=== PATIENT | female | born 1965 | race Caucasian/White ===

== ENCOUNTER 2022-12-15 12:06 | Emergency (ER) | payer OTHER ==
[2022-12-15] MEDS ORDERED: SODIUM CHLORIDE 0.9% 500 ML 500 ML IV STA (12:52)
[2022-12-15] MEDS ORDERED: SODIUM CHLORIDE 0.9% 1,000 ML IV STA (12:52)
--- NOTE | 2022-12-15 13:13 | ED ---
General Adult HPI - General Chief complaint: Anxiety Stated complaint: Dizziness Time Seen by Provider: 12/15/22 12:34 Source: patient, RN notes reviewed Mode of arrival: ambulatory Limitations: no limitations - History of Present Illness Initial comments: 48-year-old female presents emergency Department chief complaint of headache, panic attack. Patient states she woke up this morning. Very anxious. She states she's. Dizzy, lightheaded heart is racing. Patient denies any chest pain. Patient states that she went for some testing 100 forward over the [facility] because she was extremely anxious. Patient states that provider at [facility] called her PCP who then contacted the patient recommend unresponsive for evaluation. Patient states she does feel better at this time but still shaky, very anxious she states been ongoing after she states she was treated for parasites. Patient states she was started on Zoloft one week ago for her anxiety but is not helping she states makes her feel worse. - Related Data Home Medications Medication Instructions Recorded Confirmed Dicyclomine [Bentyl] 20 mg PO TID PRN 12/15/22 12/15/22 Sertraline [Zoloft] 50 mg PO DAILY 12/15/22 12/15/22 Allergies Allergy/AdvReac Type Severity Reaction Status Date / Time corn Allergy Nausea & Verified 12/15/22 22:04 Vomiting & Diarrhea Review of Systems ROS Statement: Those systems with pertinent positive or pertinent negative responses have been documented in the HPI. ROS Other: All systems not noted in ROS Statement are negative. Past Medical History Past Medical History: No Reported History History of Any Multi-Drug Resistant Organisms: None Reported Past Surgical History: No Surgical Hx Reported Past Psychological History: Anxiety, Panic Disorder Smoking Status: Never smoker Past Alcohol Use History: None Reported Past Drug Use History: None Reported General Exam Limitations: no limitations General appearance: alert, in no apparent distress, anxious Head exam: Present: atraumatic, normocephalic, normal inspection Eye exam: Present: normal appearance, PERRL, EOMI. Absent: scleral icterus, conjunctival injection, periorbital swelling ENT exam: Present: normal exam, mucous membranes moist Neck exam: Present: normal inspection, full ROM. Absent: tenderness, meningismus, lymphadenopathy Respiratory exam: Present: normal lung sounds bilaterally. Absent: respiratory distress, wheezes, rales, rhonchi, stridor Cardiovascular Exam: Present: normal rhythm, tachycardia, normal heart sounds. Absent: systolic murmur, diastolic murmur, rubs, gallop, clicks Neurological exam: Present: alert, oriented X3, reflexes normal. Absent: motor sensory deficit Course Vital Signs 12/15/22 12/15/22 12/15/22 12:16 14:57 16:00 Temperature 98 F Pulse Rate 133 H 107 H 106 H Respiratory 24 18 18 Rate Blood Pressure 111/73 141/92 135/82 O2 Sat by Pulse 100 100 100 Oximetry 12/15/22 12/15/22 12/15/22 17:28 17:38 17:58 Temperature 98.3 F 98.6 F 98.3 F Pulse Rate 109 H 112 H 111 H Respiratory 18 18 18 Rate Blood Pressure 142/90 154/90 144/81 O2 Sat by Pulse 99 99 100 Oximetry 12/15/22 12/15/22 12/15/22 18:51 20:50 21:00 Temperature 99.1 F 98.6 F Pulse Rate 101 H 95 95 Respiratory 18 16 16 Rate Blood Pressure 147/85 142/86 121/80 O2 Sat by Pulse 99 99 99 Oximetry 12/15/22 12/15/22 12/15/22 21:20 22:54 23:13 Temperature 98.5 F 98.8 F Pulse Rate 97 84 102 H Respiratory 16 16 16 Rate Blood Pressure 121/80 147/76 150/84 O2 Sat by Pulse 99 98 98 Oximetry 12/16/22 12/16/22 03:05 06:42 Temperature Pulse Rate 88 103 H Respiratory 16 Rate Blood Pressure 141/63 142/90 O2 Sat by Pulse 98 Oximetry EKG Findings - EKG Comments: EKG Findings:: EK:14 sinus tachycardia with a rate of 120, CO 119 QRS 85 QT/QTC 425/496 - EKG Results: EKG: interpreted by ERMD Medical Decision Making - Medical Decision Making Was pt. sent in by a medical professional or institution (, PA, QUAL[employer] ASSURANCE SUPERVISOR CHASSIS, urgent care, hospital, or alf...) When possible be specific @ -PCP Did you speak to anyone other than the patient for history (EMS, parent, family, police, friend...)? What history was obtained from this source @ -No Did you review nursing and triage notes (agree or disagree)? Why? @ -I reviewed and agree with nursing and triage notes Were old charts reviewed (outside hosp., previous admission, EMS record, old EKG, old radiological studies, urgent care reports/EKG's, alf records)? Report findings @ -No old charts were reviewed Differential Diagnosis (chest pain, altered mental status, abdominal pain women, abdominal pain men, vaginal bleeding, weakness, fever, dyspnea, syncope, headache, dizziness, GI bleed, back pain, seizure, CVA, palpatations, mental health, musculoskeletal)? @ -Differential Syncope: Valvular disease, hypertrophic cardiomyopathy, pulmonary embolism, tamponade, tachycardia, bradycardia, NE, hypovolemia, hemorrhage, dissection, anemia, intracranial hemorrhage, seizure, hypoglycemia, carbon monoxide poisoning, this is not meant to be an all-inclusive list. EKG interpreted by me (3pts min.). @ -As above X-rays interpreted by me (1pt min.). @ -None done CT interpreted by me (1pt min.). @ -CT abdomen shows 20.1 cm mass most likely arising from the right ovary with 2 masses of liver monitors 8.6 cm that her pulmonary nodules and mild inflammatory change of the colon U/S interpreted by me (1pt. min.). @ -None done What testing was considered but not performed or refused? (CT, X-rays, U/S, labs)? Why? @ -None What meds were considered but not given or refused? Why? @ -None Did you discuss the management of the patient with other professionals (professionals i.e. , PA, QUAL[employer] ASSURANCE SUPERVISOR CHASSIS, lab, RT, psych nurse, social science analyst, entry level software engineer, teacher, community cultural development officer, patient case coordinator)? Give summary @ -No Was smoking cessation discussed for >3mins.? @ -No Was critical care preformed (if so, how long)? @ -No Were there social determinants of health that impacted care today? How? (Homelessness, low income, unemployed, alcoholism, drug addiction, transportation, low edu. Level, literacy, decrease access to med. care, [facility], rehab)? @ -No Was there de-escalation of care discussed even if they declined (Discuss DNR or withdrawal of care, Hospice)? DNR status @ -No What co-morbidities impacted this encounter? (DM, HTN, Smoking, COPD, CAD, Cancer, CVA, ARF, Chemo, Hep., AIDS, mental health diagnosis, sleep apnea, morbid obesity)? @ -None Was patient admitted / discharged? Hospital course, mention meds given and route, prescriptions, significant lab abnormalities, going to OR and other pertinent info. @ -Patient's found to have significant anemia at 5.3 with leukocytosis at 26. Patient was ordered transfusion given symptomatic anemia. 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 Patient will be transferred to tertiary facility with [facility] oncology. Undiagnosed new problem with uncertain prognosis? @ -Yes Drug Therapy requiring intensive monitoring for toxicity (Heparin, Nitro, Insulin, Cardizem)? @ -No Were any procedures done? @ -No Diagnosis/symptom? @ -Ovarian mass, liver mass, anemia Acute, or Chronic, or Acute on Chronic? @ -Acute Uncomplicated (without systemic symptoms) or Complicated (systemic symptoms)? @ -Complicated Side effects of treatment? @ -No Exacerbation, Progression, or Severe Exacerbation? @ -No Poses a threat to life or bodily function? How? (Chest pain, USA, NE, pneumonia, PE, COPD, DKA, ARF, appy, cholecystitis, CVA, Diverticulitis, Homicidal, Suicidal, threat to staff... and all critical care pts) @ -Yes - Lab Data Result diagrams: 12/15/22 22:55 12/15/22 13:26 Lab Results 12/15/22 12/15/22 12/15/22 Range/Units 13:26 13:26 13:26 WBC 24.2 H (3.8-10.6) k/uL RBC 3.50 L (3.80-5.40) m/uL Hgb 5.9 L* (11.4-16.0) gm/dL Hct 21.3 L (34.0-46.0) % MCV 61.0 L (80.0-100.0) fL MCH 16.8 L (25.0-35.0) pg MCHC 27.5 L (31.0-37.0) g/dL RDW 19.9 H (11.5-15.5) % Plt Count 711 H (150-450) k/uL MPV 8.7 Neutrophils % 93 % Lymphocytes % 3 % Monocytes % 4 % Eosinophils % 0 % Basophils % 0 % Neutrophils # 22.4 H (1.3-7.7) k/uL Lymphocytes # 0.8 L (1.0-4.8) k/uL Monocytes # 0.9 (0-1.0) k/uL Eosinophils # 0.0 (0-0.7) k/uL Basophils # 0.0 (0-0.2) k/uL Polychromasia Present Hypochromasia Marked Poikilocytosis Slight Anisocytosis Slight Microcytosis Marked Target Cells Present Fragmented RBCs Present Sodium 139 (137-145) mmol/L Potassium 3.5 (3.5-5.1) mmol/L Chloride 100 (98-107) mmol/L Carbon Dioxide 22 (22-30) mmol/L Anion Gap 17 mmol/L BUN 14 (7-17) mg/dL Creatinine 0.74 (0.52-1.04) mg/dL Est GFR (CKD-EPI)AfAm >90 (>60 ml/min/1.73 sqM) Est GFR (CKD-EPI)NonAf >90 (>60 ml/min/1.73 sqM) Glucose 179 H (74-99) mg/dL Calcium 7.5 L (8.4-10.2) mg/dL Magnesium 1.9 (1.6-2.3) mg/dL Total Bilirubin 0.5 (0.2-1.3) mg/dL AST 54 H (14-36) U/L ALT 37 H (4-34) U/L Alkaline Phosphatase 167 H (38-126) U/L Troponin I <0.012 (0.000-0.034) ng/mL Total Protein 7.5 (6.3-8.2) g/dL Albumin 3.7 (3.5-5.0) g/dL TSH 1.170 (0.465-4.680) mIU/L Stool Occult Blood (Negative) Coronavirus (PCR) (Not Detectd) Blood Type Blood Type Confirm Blood Type Recheck Bld Type Recheck Status Antibody Screen Crossmatch Spec Expiration Date 12/15/22 12/15/22 12/15/22 Range/Units 14:05 14:20 14:20 WBC 26.3 H (3.8-10.6) k/uL RBC 3.12 L (3.80-5.40) m/uL Hgb 5.3 L* (11.4-16.0) gm/dL Hct 18.8 L* (34.0-46.0) % MCV 60.3 L (80.0-100.0) fL MCH 17.0 L (25.0-35.0) pg MCHC 28.1 L (31.0-37.0) g/dL RDW 19.6 H (11.5-15.5) % Plt Count 656 H (150-450) k/uL MPV 7.6 Neutrophils % 93 % Lymphocytes % 3 % Monocytes % 3 % Eosinophils % 0 % Basophils % 0 % Neutrophils # 24.4 H (1.3-7.7) k/uL Lymphocytes # 0.8 L (1.0-4.8) k/uL Monocytes # 0.9 (0-1.0) k/uL Eosinophils # 0.0 (0-0.7) k/uL Basophils # 0.0 (0-0.2) k/uL Polychromasia Hypochromasia Marked Poikilocytosis Slight Anisocytosis Slight Microcytosis Marked Target Cells Fragmented RBCs Sodium (137-145) mmol/L Potassium (3.5-5.1) mmol/L Chloride (98-107) mmol/L Carbon Dioxide (22-30) mmol/L Anion Gap mmol/L BUN (7-17) mg/dL Creatinine (0.52-1.04) mg/dL Est GFR (CKD-EPI)AfAm (>60 ml/min/1.73 sqM) Est GFR (CKD-EPI)NonAf (>60 ml/min/1.73 sqM) Glucose (74-99) mg/dL Calcium (8.4-10.2) mg/dL Magnesium (1.6-2.3) mg/dL Total Bilirubin (0.2-1.3) mg/dL AST (14-36) U/L ALT (4-34) U/L Alkaline Phosphatase (38-126) U/L Troponin I (0.000-0.034) ng/mL Total Protein (6.3-8.2) g/dL Albumin (3.5-5.0) g/dL TSH (0.465-4.680) mIU/L Stool Occult Blood (Negative) Coronavirus (PCR) (Not Detectd) Blood Type AB Negative Blood Type Confirm AB Negative Blood Type Recheck No Previous Record Bld Type Recheck Status CABO Indicated Antibody Screen NEGATIVE Crossmatch See Detail Spec Expiration Date 12/18/2022230412/15/22 12/15/22 12/16/22 Range/Units 16:27 22:55 03:05 WBC 26.0 H (3.8-10.6) k/uL RBC 3.47 L (3.80-5.40) m/uL Hgb 7.7 L D (11.4-16.0) gm/dL Hct 24.3 L (34.0-46.0) % MCV 70.2 L D (80.0-100.0) fL MCH 22.3 L (25.0-35.0) pg MCHC 31.7 (31.0-37.0) g/dL RDW 26.3 H (11.5-15.5) % Plt Count 490 H (150-450) k/uL MPV 8.1 Neutrophils % 89 % Lymphocytes % 5 % Monocytes % 6 % Eosinophils % 0 % Basophils % 0 % Neutrophils # 23.1 H (1.3-7.7) k/uL Lymphocytes # 1.2 (1.0-4.8) k/uL Monocytes # 1.5 H (0-1.0) k/uL Eosinophils # 0.0 (0-0.7) k/uL Basophils # 0.0 (0-0.2) k/uL Polychromasia Hypochromasia Marked Poikilocytosis Marked Anisocytosis Marked Microcytosis Marked Target Cells Fragmented RBCs Sodium (137-145) mmol/L Potassium (3.5-5.1) mmol/L Chloride (98-107) mmol/L Carbon Dioxide (22-30) mmol/L Anion Gap mmol/L BUN (7-17) mg/dL Creatinine (0.52-1.04) mg/dL Est GFR (CKD-EPI)AfAm (>60 ml/min/1.73 sqM) Est GFR (CKD-EPI)NonAf (>60 ml/min/1.73 sqM) Glucose (74-99) mg/dL Calcium (8.4-10.2) mg/dL Magnesium (1.6-2.3) mg/dL Total Bilirubin (0.2-1.3) mg/dL AST (14-36) U/L ALT (4-34) U/L Alkaline Phosphatase (38-126) U/L Troponin I (0.000-0.034) ng/mL Total Protein (6.3-8.2) g/dL Albumin (3.5-5.0) g/dL TSH (0.465-4.680) mIU/L Stool Occult Blood Positive H (Negative) Coronavirus (PCR) Not Detected (Not Detectd) Blood Type Blood Type Confirm Blood Type Recheck Bld Type Recheck Status Antibody Screen Crossmatch Spec Expiration Date Disposition Clinical Impression: Ovarian mass, Liver mass, Anemia, Leukocytosis, GI bleed Disposition: OTHER INSTITUTION NOT DEFINED Condition: Serious Referrals: Carlyle Campa MD [Primary Care Provider] - 1-2 days Time of Disposition: 17:17 - Out of Hospital Transfer - Req. Specs Out of Hospital Transfer - Requested Specifics: Other Non-Acute ([facility])
[2022-12-15 13:46] LABS: Anisocytosis Slight; Basophils % (A) 0 %; Eosinophils % (A) 0 %; HCT 21.3 % (34.0-46.0); Hypochromasia Marked; Lymphocytes # (A) 0.8 k/uL (1.0-4.8); Lymphocytes % (A) 3 %; MCH 16.8 pg (25.0-35.0); MCHC 27.5 g/dL (31.0-37.0); Mean Platelet Volume 8.7; Microcytosis Marked; Monocytes # (A) 0.9 k/uL (0-1.0); Monocytes % (A) 4 %; Neutrophils # (A) 22.4 k/uL (1.3-7.7); Neutrophils % (A) 93 %; Platelet Count 711 k/uL (150-450); Poikilocytosis Slight; RDW 19.9 % (11.5-15.5); WBC 24.2 k/uL (3.8-10.6)
[2022-12-15 13:52] LABS: HGB 5.9 gm/dL (11.4-16.0)
--- NOTE | 2022-12-15 13:57 | XR ---
EXAMINATION TYPE: XR chest 2V DATE OF EXAM: 12/15/2022 COMPARISON: NONE HISTORY: Shortness of breath TECHNIQUE: Frontal and lateral views of the chest are obtained. FINDINGS: Scattered senescent parenchymal changes noted. Hyperinflation compatible with COPD. No evidence for infiltrate. No evidence for atelectasis. Noted are scattered pulmonary nodules bilate rally measuring up to 1.9 cm left suprahilar region. CT of the chest recommended for further characte rization Heart size is stable. Mediastinal structures are stable and grossly unremarkable. No evidence for hilar prominence. Degenerative changes dorsal spine. IMPRESSION: 1. No evidence for acute pulmonary disease. Noted are scattered pulmonary nodules bilaterally measur ing up to 1.9 cm left suprahilar region. CT of the chest recommended for further characterization
[2022-12-15 14:14] LABS: Polychromasia Present
[2022-12-15 14:15] LABS: RBC Fragments Present; Target Cells Present
[2022-12-15 14:22] LABS: AST 54 U/L (14-36); African American GFR (CKD) >90 (>60 ml/min/1.73 sqM); Albumin 3.7 g/dL (3.5-5.0); Alkaline Phosphatase 167 U/L (38-126); Anion Gap 17 mmol/L; Blood Urea Nitrogen 14 mg/dL (7-17); Calcium 7.5 mg/dL (8.4-10.2); Carbon Dioxide 22 mmol/L (22-30); Chloride 100 mmol/L (98-107); Glucose 179 mg/dL (74-99); Magnesium 1.9 mg/dL (1.6-2.3); Non-African American GFR(CKD) >90 (>60 ml/min/1.73 sqM); Potassium 3.5 mmol/L (3.5-5.1); Sodium 139 mmol/L (137-145); Total Bilirubin 0.5 mg/dL (0.2-1.3); Total Protein 7.5 g/dL (6.3-8.2)
[2022-12-15 14:30] LABS: ALT 37 U/L (4-34)
[2022-12-15 14:34] LABS: Anisocytosis Slight; Basophils % (A) 0 %; Eosinophils % (A) 0 %; Hypochromasia Marked; Lymphocytes # (A) 0.8 k/uL (1.0-4.8); Lymphocytes % (A) 3 %; MCHC 28.1 g/dL (31.0-37.0); MCV 60.3 fL (80.0-100.0); Mean Platelet Volume 7.6; Microcytosis Marked; Monocytes # (A) 0.9 k/uL (0-1.0); Monocytes % (A) 3 %; Neutrophils # (A) 24.4 k/uL (1.3-7.7); Neutrophils % (A) 93 %; Platelet Count 656 k/uL (150-450); Poikilocytosis Slight; RBC 3.12 m/uL (3.80-5.40); RDW 19.6 % (11.5-15.5); WBC 26.3 k/uL (3.8-10.6)
[2022-12-15 14:45] LABS: HCT 18.8 % (34.0-46.0); HGB 5.3 gm/dL (11.4-16.0)
--- NOTE | 2022-12-15 16:32 | CT ---
EXAMINATION TYPE: CT abdomen pelvis w con DATE OF EXAM: 12/15/2022 COMPARISON: NONE HISTORY: 56-year-old female abdominal pain, diarrhea x 1 month TECHNIQUE: Contiguous axial scanning of the abdomen and pelvis following administration of 100 ml Iso amanda 300 IV contrast. Delayed images through the kidneys and coronal/sagittal reconstructions perform ed. CT DLP: 606.3 mGycm Automated exposure control for dose reduction was used. FINDINGS: Heart normal size without pericardial effusion. 3 pulmonary nodules at the left base measuring up to 1.5 cm. 2 at the medial right base measuring up to 4 mm. No pleural effusion. There are 2 hypodense masses within the liver, larger in the left lobe measuring 8.6 cm. Smaller at t he right hepatic dome measuring 1.7 cm. Portal venous system is patent. No abnormal gallbladder diste ntion. No biliary ductal dilatation. Adrenal glands, kidneys, spleen with hilar splenule, and pancreas within normal limits. Trace perihepatic and perisplenic ascites. Trace ascites tracking down the paracolic gutters. Trace p elvic ascites. No dilated small bowel or free air. There is segmental colonic wall thickening, especially the distal sigmoid and rectum. There is some a ssociated nodularity to the serosa of the rectum and the anus as well with perirectal nodularity valorie uring up to 6 mm. Bladder partially distended. Uterus anteverted. Possible endometrial thickening of the uterus 9 mm. T his can be further assessed with pelvic ultrasound. Left ovary is visualized. Right ovary not clearly delineated but there is a very large mass filling the upper pelvis extending to the level of the villatoro creas measuring up to 20.1 cm craniocaudal by 19.4 cm wide by 13.0 cm AP. Fine septations and heterogeneous material is present within. The large mass displaces bowel loops. No pelvic lymphadenopathy is seen. Bones: Levoconvex scoliosis. Hypertrophic facet arthropathy mid to lower lumbar spine. IMPRESSION: 1. VERY LARGE MASS MEASURING UP TO 20.1 CM FILLING THE UPPER PELVIS AND MOST OF THE ABDOMEN EXTENDING UP TO THE LEVEL OF THE PANCREAS. THIS MAY BE ARISING FROM THE RIGHT OVARY RAISING POSSIBILITY OF A C YSTIC EPITHELIAL OVARIAN NEOPLASM. [facility] REFERRAL ADVISED. 2. THERE ARE SOME FINDINGS WHICH MAY REFLECT METASTATIC DISEASE: 3. A FEW PULMONARY NODULES AT THE LUNG BASES MEASURING UP TO 1.5 CM. 4. 2 HYPODENSE LIVER MASSES WITH SIMILAR DENSITY THE PRIMARY MASS MEASURING UP TO 8.6 CM. 5. PERIRECTAL NODULARITY AND SOFT TISSUE THICKENING. 6. ADDITIONAL SEGMENTAL WALL THICKENING OF THE COLON PARTICULARLY THE DISTAL SIGMOID AND RECTUM. CARLOS ELATE FOR SYMPTOMS OF COLITIS. 7. PELVIC ULTRASOUND TO EXCLUDE ANY ABNORMAL ENDOMETRIAL THICKENING.
[2022-12-15 20:52] VITALS: RESP 16
[2022-12-15 23:51] LABS: Anisocytosis Marked; Basophils % (A) 0 %; Eosinophils % (A) 0 %; HCT 24.3 % (34.0-46.0); Hypochromasia Marked; Lymphocytes # (A) 1.2 k/uL (1.0-4.8); Lymphocytes % (A) 5 %; MCH 22.3 pg (25.0-35.0); MCHC 31.7 g/dL (31.0-37.0); Mean Platelet Volume 8.1; Microcytosis Marked; Monocytes # (A) 1.5 k/uL (0-1.0); Monocytes % (A) 6 %; Neutrophils # (A) 23.1 k/uL (1.3-7.7); Neutrophils % (A) 89 %; Platelet Count 490 k/uL (150-450); Poikilocytosis Marked; RBC 3.47 m/uL (3.80-5.40)
[2022-12-16 00:05] LABS: HGB 7.7 gm/dL (11.4-16.0); RDW 26.3 % (11.5-15.5)
[2022-12-16 00:06] LABS: MCV 70.2 fL (80.0-100.0)
[2022-12-16 01:00] VITALS: TEMP 98.8
[2022-12-16] MEDS ORDERED: LORazepam 2 MG/ML INJ IV PRN (06:31)
[2022-12-16 06:43] VITALS: BP 142/90; PULSE 103
== END 2022-12-16 07:06 | disposition other institution (70) ==
LOC: EC 12:06
DX: K92.2 Gastrointestinal hemorrhage, unspecified (principal); D64.9 Anemia, unspecified; C79.61 Secondary malignant neoplasm of right ovary; R16.0 Hepatomegaly, not elsewhere classified; F41.9 Anxiety disorder, unspecified; R00.0 Tachycardia, unspecified; Z79.899 Other long term (current) drug therapy; Z91.018 Allergy to other foods
CPT/HCPCS: 36415; 93005; 86900; 86901; 80053; 84443; 83735; 84484; 85025; 86850; 86920; 82272; 87635; 71046; 74177; 99285; 36430; 96374; 96361; P9016; J2060; Q9967